=== PATIENT | female | born 1985 | race Caucasian/White ===

== ENCOUNTER 2016-09-25 15:34 | Emergency (ER) | payer OTHER, MEDICAID ==
[~2016-09-25] VITALS: Ht 152.4 cm; Wt 63.5 kg
[2016-09-25 15:52] VITALS: BP 116/78
== END 2016-09-25 17:02 | disposition home or self-care (01) ==
LOC: ER 15:38
DX: L03.115 Cellulitis of right lower limb (principal)
CPT/HCPCS: 73630; 81025

== ENCOUNTER 2017-05-15 16:02 | Emergency (ER) | payer BC, MEDICAID ==
[~2017-05-15] VITALS: Ht 165.1 cm; Wt 74.7 kg
[2017-05-15 19:19] VITALS: BP 118/83
== END 2017-05-15 19:30 | disposition home or self-care (01) ==
LOC: ER 16:02
DX: M79.89 Other specified soft tissue disorders (principal); M79.605 Pain in left leg
CPT/HCPCS: 93971